=== PATIENT | female | born 1970 | race Caucasian/White ===

== ENCOUNTER 2024-01-21 11:21 | Emergency (ER) | payer SELFPAY ==
[~2024-01-21] VITALS: Ht 162.6 cm; Wt 135.5 kg
[~2024-01-21 11:21] MED LIST: EXCEDRIN TENSIO1 CAP PO; MOTRIN 600600 MG/TAB PO; SLOW FE47.5 MG PO; TOPAMAX50 MG PO; TREXIMET 500 MG1 TAB PO
[2024-01-21 11:33] VITALS: TEMP 98.1
[2024-01-21 12:48] LABS: INR 1.1 (0.8-3.0); PROTHROMBIN TIME 11.7 SECONDS (9.7-12.8)
[2024-01-21 12:50] LABS: PARTIAL THROMBOPLASTIN TIME 34.2 SECONDS (26.0-37.0)
[2024-01-21 12:51] LABS: BASO # 0.1 K/mm3 (0.0-0.2); EOS # 0.4 K/mm3 (0.0-0.7); EOS % 3.6 % (0.0-4.0); GRAN # 6.6 K/mm3 (1.4-6.5); GRAN % 64.3 % (42.2-75.2); HEMATOCRIT 37.8 % (37.0-47.0); HEMOGLOBIN 11.8 g/dl (12.5-16.0); LYMPH # 2.3 K/mm3 (1.2-3.4); LYMPH % 22.9 % (20.0-51.0); MEAN CELL VOLUME 85 fl (80.0-100.0); MEAN CORPUSCULAR HEMOGLOBIN 27 pg (27-31); MEAN CORPUSCULAR HGB CONC 31 g/dl (33.0-37.0); MEAN PLATELET VOLUME 9.7 fl (7.4-10.4); MONO # 0.8 K/mm3 (0.1-0.6); MONO % 7.8 % (1.7-9.3); PLATELET COUNT 402 K/mm3 (130-400); RED BLOOD COUNT 4.46 M/mm3 (4.10-5.30); REDCELL DISTRIBUTION WIDTH-CV 13.7 % (11.5-14.5)
[2024-01-21 13:08] LABS: ALANINE AMINOTRANSFERASE 21 U/L (0-55); ALBUMIN 3.8 g/dL (3.5-5.0); ALKALINE PHOSPHATASE 65 U/L (40-150); ANION GAP 9 mmol/L (7-16); AST,SGOT 18 U/L (5-34); BILIRUBIN,TOTAL 0.2 mg/dL (0.2-1.2); BLOOD UREA NITROGEN 17 mg/dL (10-20); CALCIUM 9.2 mg/dL (8.4-10.2); CHLORIDE 110 mEq/L (98-107); CREATININE, serum 1.21 mg/dL (0.57-1.11); GLUCOSE 109 mg/dL (70-99); MAGNESIUM 2.3 mg/dL (1.6-2.6); POTASSIUM 3.9 mEq/L (3.5-4.5); SODIUM 141 mEq/L (136-145); TOTAL PROTEIN 7.6 g/dl (6.2-8.1)
[2024-01-21 13:22] LABS: TROPONIN-I < 0.010 ng/mL (0.00-0.033)
[2024-01-21 13:42] VITALS: BP 126/83; PULSE 78
== END 2024-01-21 13:42 | disposition home or self-care (01) ==
LOC: COL.ER 11:21
PROVIDERS: Family Medicine
DX: R07.89 Other chest pain (principal)